=== PATIENT | male | born 1975 | race Caucasian/White ===

== ENCOUNTER 2017-09-22 08:09 | Inpatient (IN) ==
[~2017-09-22 08:09] MED LIST: ACETAMINOPHEN INJ 1,000 MG in PREMIX 1 EACH IV ONE; HEPARIN 5,000 UNIT/1 ML VIAL SUBCUT ONE; HYOSCYAMINE 0.125 MG TABLET SL ONE; LACTATED RINGERS 1,000 ML IV SCH; PANTOPRAZOLE 40 MG VIAL IV ONE; SCOPOLAMINE 1.5 MG PATCH TRANSDERM ONE; cefOXitin 3,000 MG in SYRINGE 1 EACH IV ONE
[2017-09-22] MEDS ORDERED: PANTOPRAZOLE 40 MG VIAL IV ONE (09:11)
[2017-09-22] MEDS ORDERED: SCOPOLAMINE 1.5 MG PATCH TRANSDERM ONE (09:11)
[2017-09-22] MEDS ORDERED: HYOSCYAMINE 0.125 MG TABLET ONE (09:11)
[2017-09-22] MEDS ORDERED: HEPARIN 5,000 UNIT/1 ML VIAL ONE (09:11)
[2017-09-22] MEDS ORDERED: ACETAMINOPHEN 1,000 MG/100 ML VIAL IV ONE ×2 (09:13→14:55)
[2017-09-22] MEDS ORDERED: DIAZEPAM 5 MG TABLET PO ONE (09:23)
[2017-09-22] MEDS ORDERED: DIAZEPAM 5 MG TABLET ONE (11:40)
[2017-09-22] MEDS ORDERED: TISSUE ADHESIVE 1 EACH APPLICATOR TOP ONE ×2 (12:10)
[2017-09-22] MEDS ORDERED: BUPIVACAINE LIPOSOMAL 20 ML/266 MG VIAL ONE (12:10)
[2017-09-22] MEDS ORDERED: LIDOCAINE 1%/EPI INJ 20 ML VIAL ONE (12:10)
[2017-09-22] MEDS ORDERED: BUPIVACAINE 0.25% /EPI 10 ML VIAL ONE (12:10)
[2017-09-22] MEDS ORDERED: ONDANSETRON 4 MG/2 ML VIAL IV PRN ×2 (13:18→15:00)
[2017-09-22] MEDS ORDERED: hydrALAZINE 20 MG/1 ML VIAL IV PRN (13:18)
[2017-09-22] MEDS ORDERED: MIDAZOLAM 2 MG/2 ML VIAL ONE (13:35)
[2017-09-22] MEDS ORDERED: HYDROmorphone 2 MG/1 ML VIAL ONE (14:48)
[2017-09-22] MEDS ORDERED: ONDANSETRON 4 MG/2 ML VIAL ONE ×2 (14:48→14:55)
[2017-09-22] MEDS: HYDROmorphone 2 MG/1 ML VIAL IV PRN ×4 (14:50→15:10)
[2017-09-22] MEDS ORDERED: ePHEDrine 50 MG/ML AMP ONE (14:53)
[2017-09-22] MEDS ORDERED: DEXAMETHASONE 10 MG/1 ML VIAL ONE (14:54)
[2017-09-22] MEDS ORDERED: SEVOFLURANE 1 UNIT/15 MINUTE INH ONE (14:54)
[2017-09-22] MEDS ORDERED: PROPOFOL 200 MG/20 ML VIAL IV ONE (14:54)
[2017-09-22] MEDS ORDERED: ROCURONIUM 100 MG/10 ML VIAL IV ONE (14:55)
[2017-09-22] MEDS ORDERED: GLYCOPYRROLATE 0.4 MG/2 ML VIAL ONE (14:55)
[2017-09-22] MEDS ORDERED: LACTATED RINGERS 1,000 ML IV ONE (14:55)
[2017-09-22] MEDS ORDERED: NEOSTIGMINE 10 MG/10 ML VIAL ONE (14:55)
[2017-09-22] MEDS ORDERED: SUCCINYLCHOLINE 200 MG/10 ML VIAL ONE (14:55)
[2017-09-22] MEDS ORDERED: hydrALAZINE 20 MG/1 ML VIAL ONE (15:23)
[2017-09-22] MEDS ORDERED: hydrALAZINE 20 MG/1 ML VIAL IV ONE (15:28)
[2017-09-22] MEDS: LACTATED RINGERS 1,000 ML IV SCH ×2 (16:05→22:50)
[2017-09-22] MEDS ORDERED: PROMETHAZINE 25 MG/1 ML VIAL IM PRN (16:08)
[2017-09-22] MEDS: LISINOPRIL 20 MG TABLET PO SCH (17:01)
[2017-09-22] MEDS: ONDANSETRON 4 MG/2 ML VIAL IV PRN (17:20)
[2017-09-22] MEDS: MORPHINE 4 MG/1 ML VIAL IV PRN ×2 (17:22→20:39)
[2017-09-22] MEDS: ceFAZolin 2,000 MG in PREMIX 1 EACH IV SCH (19:16)
[2017-09-22] MEDS: NYSTATIN POWDER 15 GM BOTTLE TOP SCH (23:42)
[2017-09-23] MEDS: MORPHINE 4 MG/1 ML VIAL IV PRN ×4 (00:25→11:10)
[2017-09-23] MEDS: LACTATED RINGERS 1,000 ML IV SCH ×4 (04:15→16:42)
[2017-09-23] MEDS: ceFAZolin 2,000 MG in PREMIX 1 EACH IV SCH (04:41)
[2017-09-23] MEDS: ONDANSETRON 4 MG/2 ML VIAL IV PRN ×4 (04:45→17:30)
[2017-09-23 06:22] LABS: Basophils % 0.1 % (0.0-0.8); Hematocrit 37.2 VOL% (42.0-52.0); Hemoglobin 11.1 GM/DL (14.0-18.0); Immature Granulocytes % 0.7 %; Immature Granulocytes Absolute 0.07 #; Lymphocytes % 9.8 % (21.2-54.2); Mean Corpuscular HGB Conc 29.8 GM/DL (32-36); Mean Corpuscular Hemoglobin 23 PG (27-34); Mean Corpuscular Volume 75.5 FL (87-102); Mean Platelet Volume 11.5 FL (9.6-12.0); Monocytes # 0.6 10*3/uL (0.11-0.8); Monocytes % 6.2 % (1.7-12.7); Neutrophils # 8.4 10*3/uL (1.4-7.4); Neutrophils % 83.2 % (38.7-73.9); Platelet Count 269 T/CUMM (130-400); Red Blood Count 4.93 MC/CUMM (3.8-5.5); Red Cell Distribution Width 18.5 % (9.3-17.3); White Blood Count 10.1 T/CUMM (4-12)
[2017-09-23 06:38] LABS: Calcium 8.4 MG/DL (8.5-10.1); Osmolality,Calculated 273.7 MOS/KG (273-304); Potassium 3.8 MMOL/L (3.5-5.1)
[2017-09-23] MEDS: PANTOPRAZOLE 40 MG VIAL IV SCH ×2 (07:40→09:24)
[2017-09-23] MEDS: LISINOPRIL 20 MG TABLET PO SCH (09:24)
[2017-09-23] MEDS: NYSTATIN POWDER 15 GM BOTTLE TOP SCH ×2 (09:31→14:31)
[2017-09-23] MEDS: SIMETHICONE CHEW 80 MG TABLET PO SCH ×2 (13:56→14:31)
[2017-09-23] MEDS: HYDROcod/ACETAMIN 7.5-325 MG/15 ML UDCUP PO PRN ×2 (13:56→17:30)
[2017-09-23 16:46] LABS: Apearance,Urine CLEAR (Clear); Bilirubin,Urine Negative (Negative); Blood, Urine Moderate mg/dL (Negative); Glucose,Urine (UA) Negative (Negative); Ketones,Urine 80 mg/dL (Negative); Mucus,Urine Occasional /LPF (Occasional); Nitrite,Urine Negative (Negative); Protein,Urine Negative; RBC,Urine 9 /HPF (0-4); Urine Color Yellow (Yellow); Urine Specific Gravity 1.014 (1.001-1.035); Urine Urobilinogen < 2.0 EU/DL (0.2-1.0); WBC,Urine 2 /HPF (0-6)
[2017-09-23 16:55] VITALS: BP 140/83
[2017-09-24] MEDS ORDERED: ENOXAPARIN 40 MG/0.4 ML SYRINGE SUBCUT SCH (09:00)
== END 2017-09-23 18:05 | disposition home or self-care (01) | DRG 621 ==
LOC: N.OR 08:09 → N.SDSINP 08:11 → N.3E 15:48
PROVIDERS: ADMIT Surgery; ATTEND Surgery